=== PATIENT | female | born 1995 | race Asian ===

== ENCOUNTER 2021-02-16 18:59 | Inpatient (IN) ==
[2021-02-16 20:56] LABS: Basophils # (auto) 0.04 K/uL (0-0.2); Basophils % (auto) 0.5 %; Eosinophils # (auto) 0.06 K/uL (0-0.5); Eosinophils % (auto) 0.8 %; Hematocrit (blood only) 34.7 % (37-47); Hemoglobin 11.8 g/dL (12.0-16.0); Immature Granulocytes # (auto) 0.01 K/uL (0.00-0.02); Immature Granulocytes % (auto) 0.1 %; Lymphocytes # (auto) 2.38 K/uL (1.2-3.4); Lymphocytes % (auto) 29.9 %; Mean Corpuscular Hemoglobin 27.6 pg (25-34); Mean Corpuscular Volume 81.3 fL (80-100); Mean Platelet Volume 10.3 fL (7.4-10.4); Monocytes # (auto) 0.55 K/uL (0.11-0.59); Monocytes % (auto) 6.9 %; Neutrophils # (auto) 4.92 K/uL (1.4-6.5); Neutrophils % (auto) 61.8 %; Platelet Count 479 K/uL (130-400); RDW Coefficient of Variation 13.7 % (11.5-14.5); RDW Standard Deviation 41.1 fL (36.4-46.3); Red Blood Count 4.27 M/uL (4.2-5.4); White Blood Count 7.96 K/uL (4.8-10.8)
[2021-02-16] MEDS ORDERED: POTASSIUM CHLORIDE CRTAB 20 MEQ TABCR PO STA (21:16)
[2021-02-16] MEDS ORDERED: SODIUM CHLORIDE 0.9% 1000ML 500 ML IV ONE (21:16)
[2021-02-16] MEDS ORDERED: POTASSIUM CHLORIDE / WTR 10 MEQ/100 ML PLCT IV ONE ×2 (21:16→23:30)
[2021-02-16] MEDS ORDERED: ONDANSETRON INJ 2 MG/ML 2 ML VIAL IV STA (21:16)
--- NOTE | 2021-02-16 21:19 | Emergency Department Note ---
Impression & Plan Weakness, Hypokalemia, Vomiting, Acute electrocardiogram changes ED Provider Note NAME: MELISSA OHARA AGE: 26 SEX: F : 1995 ARRIVES VIA: Walk-In INFORMANT: [Patient] ED PROVIDER(S): [Ajith Ram MD] CHIEF COMPLAINT: Referred by HISTORY OF PRESENT ILLNESS: The patient is a 26-year-old female who presents to the ED at her doctor's advice for a potassium of 2.6. The patient has a eating disorder. She has been dealing with this for 13 years. She has no formal diagnosis though. She typically forces herself to vomit 1 or 2 times a day. Her last vomiting spell was yesterday. She feels weak and tired but this is baseline. She is thin but this is also baseline. There has been no cough or congestion. No shortness of breath, no abdominal pain. The patient states that she was told a few months ago that her potassium was low. This was when she was in [place]. She did not start any potassium supplementation. REVIEW OF SYSTEMS: See HPI for pertinent positives and negatives. A total of ten systems were reviewed and were otherwise negative. PMHx/PSHx: See Below SOCIAL HISTORY: See Below. PHYSICAL EXAM: GENERAL: Patient is in no acute distress. Quite thin. HEENT: No acute trauma, normocephalic atraumatic, mucous membranes moist, no nasal congestion, no scleral icterus. NECK: No stridor, no adenopathy, no meningismus, trachea is midline. LUNGS: Clear to auscultation bilaterally, no wheeze, no rhonchi, breath sounds equal. HEART: Without murmurs gallops or rubs, regular rate and rhythm. ABDOMEN: Soft, nontender, bowel sounds positive, no hernias, no peritonitis. EXTREMITIES: No cyanosis or edema, full range of motion of all the joints without pain or difficulty, no signs for acute trauma. NEUROLOGIC: Oriented x 3, no acute motor or sensory deficits, no focal weakness. SKIN: No rash, no jaundice, no diaphoresis. DIFFERENTIAL DIAGNOSIS: Dehydration, electrolyte imbalance, hypokalemia, dysrhythmia, malnutrition, dehydration, eating disorder, among others. EMERGENCY DEPARTMENT COURSE/PROCEDURES: ECG: Indication was low potassium. The ECG shows a normal sinus rhythm with a rate of 62. There are some potential U waves in the lateral leads. There are no PVCs, no ST elevation. The QTc is 452. No old ECGs available for comparison. Continuous Cardiac Monitoring: An order was placed for continuous cardiac monitoring. The monitor shows a rate of 70 with normal sinus rhythm. Critical Care Note: I have personally spent 42 minutes of critical care time in the direct management of this patient. This includes bedside care, interpretation of diagnostic studies, and testing, discussion with consultants, patient, and family members, and other required patient management activities. This 42 minutes is in excess of all separately billable procedures. MEDICAL DECISION MAKING: There is no leukocytosis or concerning anemia. The platelet count is slightly elevated. Renal panel testing shows a low sodium and low chloride. CO2 was elevated. Potassium was critically low at 1.9. No concerning liver enzyme elevation. The patient appeared to be in a euthyroid state. Covid testing is pending. ECG showed a sinus rhythm with some potential U waves consistent with the lower potassium value. On exam, the patient was not hypoxic or febrile. She was quite thin and frail appearing. The patient was aggressively managed given her critically low potassium. She received oral and IV potassium. A second dose of IV potassium was administered. She was kept on the nurse monitoring. She was given IV saline for hydration. She received IV Zofran to prevent further nausea/vomiting. The patient has a known eating disorder. She presents with ongoing weakness. Her potassium is critically low and she has some EKG changes. She is going to require a hospital stay to correct her significant potassium deficit. I did speak with the patient and case supervisor. The on-call hospitalist was consulted. Past Med/Surg History Medical History Eating disorder Social History Smoking Status: Never smoker Feels Safe at Home: Yes Allergies Allergies Allergy/AdvReac Type Severity Reaction Status Date / Time No Known Allergies Allergy Unverified 02/16/21 21:04 Home Meds Home Medications Medication Instructions Recorded Confirmed Control 1 tab PO DAILY 02/16/21 02/16/21 Results & Data (ED) Vital Signs Vital Signs - 24 hr 02/16/21 19:09 02/16/21 23:00 02/16/21 23:30 Temperature 36.8 C Temperature Source Temporal Artery Scan Pulse Rate 70 68 71 Respiratory Rate 16 15 20 Respiratory Effort / Characteristics Non-Labored Spontaneous Respiratory Depth Normal Blood Pressure 104/69 Blood Pressure Mean 80 Blood Pressure Position Sitting Pulse Oximetry 100 Oxygen Delivery Method Room Air Sepsis Recent Fever Within 48 Hours No Sepsis New/Unexplained Change in Mental Status N/A Sepsis Action Taken by Nursing No Action Required 02/16/21 23:57 Temperature Temperature Source Pulse Rate 70 Respiratory Rate 18 Respiratory Effort / Characteristics Respiratory Depth Blood Pressure 108/67 Blood Pressure Mean 80 Blood Pressure Position Pulse Oximetry 98 Oxygen Delivery Method Room Air Sepsis Recent Fever Within 48 Hours Sepsis New/Unexplained Change in Mental Status Sepsis Action Taken by Longterm Medications Current Medication List: was personally reviewed by me Laboratory Data Attestation: I reviewed the patient's lab results. Result diagrams: 02/16/21 20:36 02/16/21 22:33 Lab Results 02/16/21 02/16/21 02/16/21 Range/Units 20:36 20:36 20:36 WBC 7.96 (4.8-10.8) K/uL RBC 4.27 (4.2-5.4) M/uL Hgb 11.8 L (12.0-16.0) g/dL Hct 34.7 L (37-47) % MCV 81.3 (80-100) fL MCH 27.6 (25-34) pg MCHC 34.0 (32-36) g/dL RDW Std Deviation 41.1 (36.4-46.3) fL RDW Coeff of Gavino 13.7 (11.5-14.5) % Plt Count 479 H (130-400) K/uL MPV 10.3 (7.4-10.4) fL Immature Gran % (Auto) 0.1 % Neut % (Auto) 61.8 % Lymph % (Auto) 29.9 % [place] % (Auto) 6.9 % Eos % (Auto) 0.8 % Baso % (Auto) 0.5 % Neut # (Auto) 4.92 (1.4-6.5) K/uL Lymph # (Auto) 2.38 (1.2-3.4) K/uL [place] # (Auto) 0.55 (0.11-0.59) K/uL Eos # (Auto) 0.06 (0-0.5) K/uL Baso # (Auto) 0.04 (0-0.2) K/uL Immature Gran # (Auto) 0.01 (0.00-0.02) K/uL Sodium 131 L (136-145) mmol/L Potassium (3.5-5.1) mmol/L Chloride 87 L (98-107) mmol/L Carbon Dioxide 36 H (21-32) mmol/L Anion Gap 8.0 (3-11) BUN 11 (7-18) mg/dl Creatinine 0.73 (0.6-1.2) mg/dl Est Cr Clr Drug Dosing 69.4 ml/min Est GFR ( Amer) 129.9 ml/min Est GFR (Non-Af Amer) 112.1 ml/min BUN/Creatinine Ratio 15.0 (10-20) Glucose 80 (70-99) mg/dl Calcium 9.8 (8.5-10.1) mg/dl Phosphorus 2.9 (2.5-4.9) mg/dl Magnesium (1.8-2.4) mg/dl Total Bilirubin 0.4 (0.2-1) mg/dl AST (15-37) U/L ALT 18 (12-78) U/L Alkaline Phosphatase 31 L (45-117) U/L Total Protein 8.4 H (6.4-8.2) gm/dl Albumin 3.4 (3.4-5.0) gm/dl Globulin 5.0 H (2.5-4.0) gm/dl Albumin/Globulin Ratio 0.7 L (0.9-2) TSH 0.699 (0.300-4.500) uIu/ml COVID-19 Eval Order 02/16/21 02/16/21 Range/Units 22:33 23:50 WBC (4.8-10.8) K/uL RBC (4.2-5.4) M/uL Hgb (12.0-16.0) g/dL Hct (37-47) % MCV (80-100) fL MCH (25-34) pg MCHC (32-36) g/dL RDW Std Deviation (36.4-46.3) fL RDW Coeff of Gavino (11.5-14.5) % Plt Count (130-400) K/uL MPV (7.4-10.4) fL Immature Gran % (Auto) % Neut % (Auto) % Lymph % (Auto) % [place] % (Auto) % Eos % (Auto) % Baso % (Auto) % Neut # (Auto) (1.4-6.5) K/uL Lymph # (Auto) (1.2-3.4) K/uL [place] # (Auto) (0.11-0.59) K/uL Eos # (Auto) (0-0.5) K/uL Baso # (Auto) (0-0.2) K/uL Immature Gran # (Auto) (0.00-0.02) K/uL Sodium (136-145) mmol/L Potassium 1.9 L* (3.5-5.1) mmol/L Chloride (98-107) mmol/L Carbon Dioxide (21-32) mmol/L Anion Gap (3-11) BUN (7-18) mg/dl Creatinine (0.6-1.2) mg/dl Est Cr Clr Drug Dosing ml/min Est GFR ( Amer) ml/min Est GFR (Non-Af Amer) ml/min BUN/Creatinine Ratio (10-20) Glucose (70-99) mg/dl Calcium (8.5-10.1) mg/dl Phosphorus (2.5-4.9) mg/dl Magnesium 2.1 (1.8-2.4) mg/dl Total Bilirubin (0.2-1) mg/dl AST 25 (15-37) U/L ALT (12-78) U/L Alkaline Phosphatase (45-117) U/L Total Protein (6.4-8.2) gm/dl Albumin (3.4-5.0) gm/dl Globulin (2.5-4.0) gm/dl Albumin/Globulin Ratio (0.9-2) TSH (0.300-4.500) uIu/ml COVID-19 Eval Order Covid19 at [facility] Administered Medications Potassium Chloride (K Matt / Wtr) 10 meq in 100 mls @ 100 mls/hr IV ONE ONE Stop: 02/17/21 00:29 Last Admin: 02/16/21 23:49 Dose: 100 mls/hr Documented by: [id number] Discontinued Medications Sodium Chloride (Nss 1000ml) 500 mls @ 999 mls/hr IV .Q31M ONE Stop: 02/16/21 21:46 Last Infusion: 02/16/21 22:56 Dose: 0 mls/hr Documented by: [id number] Admin: 02/16/21 21:59 Dose: 999 mls/hr Documented by: [id number] Potassium Chloride (K Matt / Wtr) 10 meq in 100 mls @ 100 mls/hr IV ONE ONE Stop: 02/16/21 22:15 Last Infusion: 02/16/21 22:55 Dose: 0 mls/hr Documented by: [id number] Admin: 02/16/21 21:59 Dose: 100 mls/hr Documented by: [id number] Ondansetron HCl (Ondansetron Inj 2 Mg/Ml 2 Ml Vial) 4 mg IV NOW STA Stop: 02/16/21 21:17 Last Admin: 02/16/21 21:59 Dose: 4 mg Documented by: [id number] Potassium Chloride (Potassium Chloride Crtab 20 Meq Tabcr) 20 meq PO NOW STA Stop: 02/16/21 21:17 Last Admin: 02/16/21 21:59 Dose: 20 meq Documented by: [id number] Discharge Plan Visit Data Chief Complaint: Referred by Doctor Stated Complaint: DOCTOR REFERRAL ED Provider: Ajith Ram Discharge Problem: Weakness, Hypokalemia, Vomiting, Acute electrocardiogram changes Patient Disposition: Admitted As Inpatient Condition: Fair Forms Stand Alone Forms: [facility] Prescriptions Prescriptions: No Action Control 1 tab PO DAILY RF: 0 Referrals Referrals: PCP,NO [Primary Care Provider] -
[2021-02-16 21:31] LABS: Albumin Globulin Ratio 0.7 (0.9-2); Albumin Level 3.4 gm/dl (3.4-5.0); Bilirubin,Total 0.4 mg/dl (0.2-1); Calcium 9.8 mg/dl (8.5-10.1); Creatinine Clr Calc Pharmacy 69.4 ml/min; Est GFR (African American) 129.9 ml/min; Est GFR (Non-African American) 112.1 ml/min; Total Protein 8.4 gm/dl (6.4-8.2)
[2021-02-16 21:49] LABS: Phosphorus 2.9 mg/dl (2.5-4.9); Thyroid Stimulating Hormone 0.699 uIu/ml (0.300-4.500)
[2021-02-16 23:28] LABS: Magnesium 2.1 mg/dl (1.8-2.4); Potassium 1.9 mmol/L (3.5-5.1)
[2021-02-17] MEDS ORDERED: POTASSIUM CHLORIDE CRTAB 20 MEQ TABCR PO STA (00:42)
[2021-02-17] MEDS ORDERED: THIAMINE HCL 100 MG TAB PO STA (00:42)
--- NOTE | 2021-02-17 00:43 | History & Physical Report ---
Date of Service February 17, 2021 Assessment & Plan (1) Hypokalemia: Plan: 18-year-old female presenting from outside clinic after being found with potassium of 2.6. Potassium here = 1.9. Patient with history of eating disorder with self-induced vomiting 1-2 times per day as well as some calorie restriction. Suspect decreased intake of potassium in conjunction with GI losses from vomiting as primary cause of hypokalemia. Patient is HD stable. EKG with CT of 174, ?U wave in V3 -She received 40 mEq of K in the ER. Will administer additional 80mEq (total of 120mEq) and repeat chemistry -BMP q 8 hours -Magnesium 1gm IV x 1 -Check urine K and Cr for possible urinary K loss (2) Eating disorder: Plan: Patient with longstanding history of eating disorder. She states that she started 13 years ago after attempted to lose weight and has continued with some calorie restriction as well as purging behavior. She has never received a formal diagnosis for her eating disorder and has never sought psychiatric help. I briefly discussed with her the risks of purging behavior to include organ dysfunction, malnutrition. She is interested in speaking with psychiatry. Psychiatry consult appreciated We will administer thiamine 100 mg p.o. daily Closely monitor electrolytes, potassium, magnesium, phosphorus and replete as needed Plan: FENnormal saline at 80 mL/h x 1 L, potassium repletion as above, normal diet as tolerated ProphylaxisSCDs Codepatient states she wishes to be DNR/DNI. While this is her personal choice it is concerning given her young age. Did not delve into any personal or cultural reasons for this decision at this time. Dispoadmit to medical with telemetry History of Present Illness Chief Complaint: hypokalemia Primary Care Provider: NO PCP 26yo female presenting with hypokalemia. Patient was seen at the [facility] clinic today. She had labs sent which revealed a potassium of 2.6. She was subsequently sent to the ER for additional work-up and treatment. Patient has a longstanding history of eating disorder. She admits to calorie counting as well as purging 1-2 times daily. She has been dealing with this for approximately 13 years. Reports she has never been formally evaluated for an eating disorder. She was told several months ago while in [place] that her potassium was low. She is presently not taking any potassium supplements. She denies diarrhea or use of diuretics or laxatives to aid in weight loss. She is complaining of generalized weakness otherwise negative review of systems Has received both Covid vaccines. Second dose of Pfizer 02/06/2021 Allergies Allergy/AdvReac Type Severity Reaction Status Date / Time No Known Allergies Allergy Unverified 02/16/21 21:04 Home Medications Medication Instructions Recorded Confirmed Type Control 1 tab PO DAILY 02/16/21 02/16/21 History Past Med/Surg History Medical History (Updated 02/17/21 @ 03:23 by Patria Slater DO) Eating disorder Surgical History (Updated 02/17/21 @ 03:21 by Patria Slater DO) History of repair of congenital atrial septal defect (ASD) Family History (Updated 02/17/21 @ 03:21 by Patria Slater DO) Other Diabetes Heart disease Hypertension Social History (Updated 02/17/21 @ 03:21 by Patria Slater DO) Smoking Status: Never smoker Hx Alcohol Use: No Hx Substance Use: No Feels Safe at Home: Yes Review of Systems Review of Systems: All systems reviewed & are unremarkable except as noted in HPI & below Physical Exam Physical Exam: General: patient resting comfortably, NAD, non-toxic in appearance, anxious, thin, AA&O x 4 Skin: warm, dry, intact, no rashes or lesions HEENT: NC/AT, PERRL, EOMI, anicteric sclera, conjunctiva without injection, external ear normal to inspection and nontender, nares patent, moist mucus membranes, dentition intact, no oropharyngeal lesions, neck supple, trachea midline, no LAD, no thyromegaly, no JVD Heart: +S1/S2, regular, flow murmur, no rubs/gallops Lungs: equal air entry bilaterally, no rales/rhonchi/wheezes Abd: +BS, soft, NT/ND, no masses/organomegaly/ascites Ext: warm, 2+ pulses in UE/LE bilaterally, no clubbing/cyanosis or edema Neuro: nonfocal, patient AA&O x 4, speech intact, no facial droop, moving all extremities on command with equal strength 5/5 Results & Data Results & Data ([facility]) Vital Signs (Past 12 Hours) Vital Signs Temp Pulse Resp BP Pulse Ox 02/16/21 23:57 70 18 108/67 98 02/16/21 23:30 71 20 02/16/21 23:00 68 15 02/16/21 19:09 36.8 C 70 16 104/69 100 Laboratory Results Laboratory Results WBC 7.96 K/uL (4.8-10.8) 02/16/21 20:36 RBC 4.27 M/uL (4.2-5.4) 02/16/21 20:36 Hgb 11.8 g/dL (12.0-16.0) L 02/16/21 20:36 Hct 34.7 % (37-47) L 02/16/21 20:36 MCV 81.3 fL (80-100) 02/16/21 20:36 MCH 27.6 pg (25-34) 02/16/21 20:36 MCHC 34.0 g/dL (32-36) 02/16/21 20:36 RDW Std Deviation 41.1 fL (36.4-46.3) 02/16/21 20:36 RDW Coeff of Gavino 13.7 % (11.5-14.5) 02/16/21 20:36 Plt Count 479 K/uL (130-400) H 02/16/21 20:36 MPV 10.3 fL (7.4-10.4) 02/16/21 20:36 Immature Gran % (Auto) 0.1 % 02/16/21 20:36 Neut % (Auto) 61.8 % 02/16/21 20:36 Lymph % (Auto) 29.9 % 02/16/21 20:36 [place] % (Auto) 6.9 % 02/16/21 20:36 Eos % (Auto) 0.8 % 02/16/21 20:36 Baso % (Auto) 0.5 % 02/16/21 20:36 Neut # (Auto) 4.92 K/uL (1.4-6.5) 02/16/21 20:36 Lymph # (Auto) 2.38 K/uL (1.2-3.4) 02/16/21 20:36 [place] # (Auto) 0.55 K/uL (0.11-0.59) 02/16/21 20:36 Eos # (Auto) 0.06 K/uL (0-0.5) 02/16/21 20:36 Baso # (Auto) 0.04 K/uL (0-0.2) 02/16/21 20:36 Immature Gran # (Auto) 0.01 K/uL (0.00-0.02) 02/16/21 20:36 Sodium 131 mmol/L (136-145) L 02/16/21 20:36 Potassium 1.9 mmol/L (3.5-5.1) L* 02/16/21 22:33 Chloride 87 mmol/L (98-107) L 02/16/21 20:36 Carbon Dioxide 36 mmol/L (21-32) H 02/16/21 20:36 Anion Gap 8.0 (3-11) 02/16/21 20:36 BUN 11 mg/dl (7-18) 02/16/21 20:36 Creatinine 0.73 mg/dl (0.6-1.2) 02/16/21 20:36 Est Cr Clr Drug Dosing 69.4 ml/min 02/16/21 20:36 Est GFR ( Amer) 129.9 ml/min 02/16/21 20:36 Est GFR (Non-Af Amer) 112.1 ml/min 02/16/21 20:36 BUN/Creatinine Ratio 15.0 (10-20) 02/16/21 20:36 Glucose 80 mg/dl (70-99) 02/16/21 20:36 Calcium 9.8 mg/dl (8.5-10.1) 02/16/21 20:36 Phosphorus 2.9 mg/dl (2.5-4.9) 02/16/21 20:36 Magnesium 2.1 mg/dl (1.8-2.4) 02/16/21 22:33 Total Bilirubin 0.4 mg/dl (0.2-1) 02/16/21 20:36 AST 25 U/L (15-37) 02/16/21 22:33 ALT 18 U/L (12-78) 02/16/21 20:36 Alkaline Phosphatase 31 U/L (45-117) L 02/16/21 20:36 Total Protein 8.4 gm/dl (6.4-8.2) H 02/16/21 20:36 Albumin 3.4 gm/dl (3.4-5.0) 02/16/21 20:36 Globulin 5.0 gm/dl (2.5-4.0) H 02/16/21 20:36 Albumin/Globulin Ratio 0.7 (0.9-2) L 02/16/21 20:36 TSH 0.699 uIu/ml (0.300-4.500) 02/16/21 20:36 Urine Color Yellow 02/17/21 03:10 Urine Appearance Clear (Clear) 02/17/21 03:10 Urine pH 7.0 (4.5-7.5) 02/17/21 03:10 Ur Specific [place] 1.014 (1.000-1.030) 02/17/21 03:10 Urine Protein Negative (Negative) 02/17/21 03:10 Urine Glucose (UA) Negative (Negative) 02/17/21 03:10 Urine Ketones 1+ (Negative) H 02/17/21 03:10 Urine Blood Negative (Negative) 02/17/21 03:10 Urine Nitrite Negative (Negative) 02/17/21 03:10 Urine Bilirubin Negative (Negative) 02/17/21 03:10 Urine Urobilinogen Negative (Negative) 02/17/21 03:10 Ur Leukocyte Esterase Negative (Negative) 02/17/21 03:10 COVID-19 Eval Order Covid19 at [facility] 02/16/21 23:50 SARS-CoV-2 (PCR) NEGATIVE (Negative) 02/16/21 23:50 Code Status & VTE Plan VTE Prophylaxis Plan VTE Prophylaxis will be ordered: Yes PG Care Time/CCT Total # of Minutes Spent Total Time Spent with Patient: Total time spent is greater than 50% in coordination of care (as documented) at patient's floor/unit and/or counseling patient: Coding Level of Care Code 70822 Initial Inpt Care Lvl 2 Diagnoses Hypokalemia E87.6 Eating disorder F50.9
[2021-02-17 03:17] LABS: Appearance Urine Clear (Clear); Bilirubin Urine Negative (Negative); Blood Urine Negative (Negative); Color Urine Yellow; Glucose Urine UA Negative (Negative); Ketones Urine 1+ (Negative); Leukocyte Esterase Urine Negative (Negative); Nitrite Urine Negative (Negative); Protein Urine Negative (Negative); Specific Gravity Urine 1.014 (1.000-1.030); Urobilinogen Urine Negative (Negative)
[2021-02-17] MEDS ORDERED: SODIUM CHLORIDE 0.9% 1000ML 1,000 ML IV SCH (05:43)
[2021-02-17] MEDS ORDERED: ONDANSETRON INJ 2 MG/ML 2 ML VIAL IV PRN (05:43)
[2021-02-17] MEDS ORDERED: ACETAMINOPHEN 325 MG TAB PO PRN (05:43)
[2021-02-17] MEDS ORDERED: MAGNESIUM SULFATE / D5W 1 GM/100 ML BAG IV ONE (05:45)
[2021-02-17 07:06] LABS: BUN Creatinine Ratio 14.1 (10-20); Calcium 8.3 mg/dl (8.5-10.1); Creatinine Clr Calc Pharmacy 93.8 ml/min; Est GFR (African American) 148.8 ml/min; Est GFR (Non-African American) 128.4 ml/min; Potassium 2.7 mmol/L (3.5-5.1)
[2021-02-17] MEDS: THIAMINE HCL 100 MG TAB PO SCH (10:57)
--- NOTE | 2021-02-17 11:07 | Hospitalist Progress Note ---
Date of Service February 17, 2021 Assessment & Plan (1) Eating disorder: Plan: 26yo female with anorexia nervosa (binge eating and purging subtype) who presents with severe hypokalemia in the setting of disordered eating. Hypokalemia Potassium 1.9 on arrival, improved to 2.9 (02/17 midday) Likely secondary to emesis as well as malnutrition EKG without acute abnormality Magnesium wnl Continue NSS @ 80mL/hr with 40mEq per bag Continue KCl @ 20mEq PO bid Trend BMP q8hr, trend magnesium daily Anorexia nervosa, binge-purge subtype Patient with 10+ year history of eating disorder History of at least two inpatient psychiatric hospitalizations (in [place]) at age 14-15 BMI 17.0, albumin 3.4 Other than hypokalemia, other electrolytes wnl - patient does not appear to be at risk for refeeding syndrome Patient reports some temptation to purge while here - if this worsens, consider hydroxyzine prior to meals Psychiatry consult placed Nutrition consult placed Continue protonix, daily multivitamin with minerals, thiamine Behavioral/emotional health Patient endorses long history of suicidal ideation, multiple suicide attempts, ritualistic behaviors Concern for comorbid psychiatric conditions e.g. MDD, OCD Psychiatry consulted as above Patient denies active or passive suicidal ideation FEN: NSS with 40mEq KCl @ 80mL/hr, regular diet Code status: DNR/DNI DVT ppx: SCDs Held home meds: none Consults: psychiatry, nutrition PT/OT: not indicated Dispo: med/surg tele (2) Hypokalemia: Admission and Anticipated Discharge Date Admission Date: February 17, 2021 Supervising Physician Co-Signing Physician Notes Resident Physician Supervision Note: I independently interviewed and examined the patient and verified the yeager history and physical, reviewed labs and image studies and agree with resident Dr. Austin findings and care plan. Subjective Patient seen and evaluated at bedside this morning. Patient feels well today - endorses mild anxiety as only current symptom. 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 Patient denies CP, SOB, abdominal pain, nausea, vomiting, lightheadedness, dizziness, and diarrhea. Denies recent change in appetite, energy level, focus, or need for sleep. Endorses some hopelessness and regret. Denies excessive involvement in pleasurable activities, denies increased risk- taking. Denies AVH, denies SI/HI. Of note, patient reported to me that she actually has received medical/psychiatric treatment for disordered eating. Patient reports she has had two inpatient psychiatric hospitalizations, both of which occurred at age 14-15. One stay was five months, the other was two months. Patient received outpatient eating disorder treatment for 3-4 years afterward before stopping treatment. Patient has not seen a psychiatrist in 2-3 years. Patient endorses a history of cutting on her upper left arm, in addition to "a few" suicide attempts during her teenage years. One such attempt entailed an intentional ingestion of "one of every different kind of pill I could find". Patient reports that she did not seek or require medical treatment after any of her suicide attempts. Review of Systems Review of Systems: See HPI Physical Exam Physical Exam: Constitutional: thin, tired-appearing, no acute distress HEENT: NCAT, no conjunctival injection, no swelling of cheeks noted, poor dentition CV: regular rhythm, no murmur appreciated, extremities well-perfused, no LE edema Resp: CTABL, no wheezes/rales/rhonchi appreciated, no increased work of breathing Skin: well-healed vertical scars on upper left arm Neuro: AOx4, no focal neurological deficits appreciated Appearance: well-groomed, appropriately dressed Behavior: calm, cooperative, eye contact good Mood: "okay" Affect: pleasant, affect congruent with mood Speech: appropriate rate/quantity/volume Thought process: linear, coherent Thought content: appropriate to topic of discussion Cognition: alert, focused, short- and long-term memory grossly intact, abstraction intact Insight: fair Judgment: fair Results & Data Results & Data ([facility]) Vital Signs (Past 12 Hours) Vital Signs Pulse Pulse Resp BP BP Pulse Ox 02/17/21 10:00 66 18 121/62 100 02/17/21 07:36 65 93/64 L 100 02/17/21 06:07 58 L 12 84/53 L 98 02/17/21 05:57 81 25 H 02/17/21 05:00 66 13 98 02/17/21 04:45 57 L 22 98 02/17/21 04:30 61 12 97 02/17/21 04:15 61 14 97 02/17/21 04:00 63 12 97 02/17/21 03:45 63 12 98 02/17/21 03:30 58 L 13 97 02/17/21 03:15 56 L 21 99 02/17/21 02:30 57 L 13 109/62 99 02/17/21 02:00 63 15 101/59 L 98 02/17/21 01:30 81 16 108/65 100 02/17/21 01:00 70 14 98/61 L 98 02/17/21 00:30 85 19 105/67 100 02/17/21 00:00 77 15 106/69 100 02/16/21 23:57 70 18 108/67 98 02/16/21 23:30 71 20 02/16/21 23:00 68 15 Resident Activity Tracking Resident Involvement: Resident Care Provided Care Provided: Adult Hospital Medicine
[2021-02-17] MEDS: ORAL CONTRACEPTIVE~ORDER AWAITING ACTION SCH ×3 (11:55→23:41)
[2021-02-17 13:03] LABS: BUN Creatinine Ratio 10.5 (10-20); Blood Urea Nitrogen 5 mg/dl (7-18); Calcium 9.3 mg/dl (8.5-10.1); Carbon Dioxide 29 mmol/L (21-32); Chloride 98 mmol/L (98-107); Creatinine Clr Calc Pharmacy 99.3 ml/min; Est GFR (African American) > 150.0 ml/min; Est GFR (Non-African American) 130.9 ml/min; Glucose 91 mg/dl (70-99); Potassium 2.9 mmol/L (3.5-5.1); Sodium 134 mmol/L (136-145)
--- NOTE | 2021-02-17 13:56 | Medical Student Progress Note ---
Date of Service February 17, 2021 Assessment & Plan (1) Hypokalemia: Plan: -Patient is not currently experiencing any symptoms -Last Potassium level was 2.9 -IV saline and potassium should be continued. -Potassium levels should be drawn every 12h until the level is back within the normal range -Patient should start a potassium supplement upon discharge (2) Eating disorder: Plan: -Patient BMI is 17, a nutrition consult has been placed to work on proper nourishment for the patient -Patient continues to binge and purge putting her at risk for electrolyte imbalances -Psychiatry has been consulted to assess any psychiatric factors that may influence her management -Patient should start on a multivitamin -Upon discharge the patient should follow up with the [facility] team. (3) History of suicide attempt: Plan: -Patient has not informed us of any thoughts of suicidal ideation at this point in time -A psychiatric consult has been placed to assess the patient's current psychiatric state and suicide risk Admission and Anticipated Discharge Date Admission Date: February 17, 2021 Subjective 26 y/o female presented last night to the ED due to hypokalemia. Patient was establishing care with the [facility] program for an eating disorder. They bishnu labs to establish a baseline, noted hypokalemia, and advised the patient to present to the ED. Upon arrival to the ED, patient was alert and oriented and stated she had no symptoms. Labs were drawn and were significant for hypokalemia which had a value 1.9. The patient had an EKG which showed no significant findings. Today the patient feels well and has no complaints. The patient has a history of an undiagnosed eating disorder. She states that she has been binging and purging since around the age of 11. She said that these eating habits began after family members and friends started making comments about weight gain that she had at that age. The patient has had two prior hospitalizations due to complications from her eating disorder. The patient states that she often times will purge after lunch and will always purge after dinner. She will not eat certain foods due to a reason that she has a difficult time describing, but not due to their nutritional or caloric value. The patient states that the reason she avoids certain foods is also applied to other aspects of her life. She listed the example of writing the same letter repeatedly for up to a half hour due to it needing to look a certain way. The patient does not note any history of prior physical, emotional, or sexual abuse. She does have a history of past suicidal attempts. The patient feels safe at home. The patient is from [place], and recently moved to [place] to attend graduate school at [employer]. She has no friends or family in the area. She lives in an apartment that she shares with three other girls. The patient states that she does not use the kitchen due to it being dirty and will only eat things that can be stored and prepared in her room. The patient was interested in seeing a member from the psychiatric team. Additionally, she want to continue to establish care and work with the HEALS team at [facility]. Review of Systems Review of Systems: All systems reviewed & are unremarkable except as noted in Subjective Physical Exam Constitutional: Thin, fatigued looking female, alert and oriented, sitting comfortably upright in bed Eyes: Parotids normal in size on palpation Single lower front tooth missing. No signs of dental carries Respiratory: normal respiratory effort, lungs clear to auscultation Cardiovascular: Rate/Rhythm: regular rate and regular rhythm Heart Sounds: normal S1 and normal S2 Musculoskeletal: B/L upper extremity strength 5/5, B/L lower extremity strength 4/5 Results & Data ([facility]) Vital Signs (Past 12 Hours) Vital Signs Pulse Pulse Resp BP BP Pulse Ox 02/17/21 13:34 64 18 102/65 98 02/17/21 10:00 66 18 121/62 100 02/17/21 07:36 65 93/64 L 100 02/17/21 06:07 58 L 12 84/53 L 98 02/17/21 05:57 81 25 H 02/17/21 05:00 66 13 98 02/17/21 04:45 57 L 22 98 02/17/21 04:30 61 12 97 02/17/21 04:15 61 14 97 02/17/21 04:00 63 12 97 02/17/21 03:45 63 12 98 02/17/21 03:30 58 L 13 97 02/17/21 03:15 56 L 21 99 02/17/21 02:30 57 L 13 109/62 99 02/17/21 02:00 63 15 101/59 L 98
[2021-02-17 14:22] LABS: BUN Creatinine Ratio 7.6 (10-20); Calcium 8.6 mg/dl (8.5-10.1); Potassium 2.7 mmol/L (3.5-5.1)
[2021-02-17] MEDS: POTASSIUM CHLORIDE 40 MEQ in SODIUM CHLORIDE 0.9% 1000ML 1,000 ML IV SCH (15:32)
[2021-02-17 16:44] LABS: Calcium 8.8 mg/dl (8.5-10.1); Creatinine Clr Calc Pharmacy 72.4 ml/min; Est GFR (African American) 121.8 ml/min; Est GFR (Non-African American) 105.1 ml/min; Potassium 2.8 mmol/L (3.5-5.1)
[2021-02-17] MEDS: PANTOprazole 40 MG TAB PO SCH (18:05)
[2021-02-17] MEDS: POTASSIUM CHLORIDE CRTAB 20 MEQ TABCR PO SCH (19:37)
[2021-02-17 21:10] LABS: BUN Creatinine Ratio 13.7 (10-20); Calcium 8.9 mg/dl (8.5-10.1); Creatinine Clr Calc Pharmacy 71.5 ml/min; Est GFR (African American) 119.9 ml/min; Est GFR (Non-African American) 103.5 ml/min; Potassium 3.4 mmol/L (3.5-5.1)
[2021-02-18] MEDS: POTASSIUM CHLORIDE 40 MEQ in SODIUM CHLORIDE 0.9% 1000ML 1,000 ML IV SCH (02:13)
[2021-02-18 05:14] LABS: BUN Creatinine Ratio 15.1 (10-20); Blood Urea Nitrogen 7 mg/dl (7-18); Calcium 8.4 mg/dl (8.5-10.1); Carbon Dioxide 28 mmol/L (21-32); Chloride 109 mmol/L (98-107); Creatinine Clr Calc Pharmacy 113.8 ml/min; Est GFR (African American) > 150.0 ml/min; Est GFR (Non-African American) 132.6 ml/min; Glucose 77 mg/dl (70-99); Magnesium 1.7 mg/dl (1.8-2.4); Potassium 3.4 mmol/L (3.5-5.1); Sodium 140 mmol/L (136-145)
[2021-02-18 05:15] LABS: Phosphorus 2.5 mg/dl (2.5-4.9)
[2021-02-18] MEDS ORDERED: POTASSIUM CHLORIDE CRTAB 20 MEQ TABCR PO STA (06:17)
[2021-02-18] MEDS ORDERED: MAGNESIUM SULFATE / D5W 1 GM/100 ML BAG IV ONE (07:00)
[2021-02-18 07:13] LABS: BUN Creatinine Ratio 14.3 (10-20); Blood Urea Nitrogen 7 mg/dl (7-18); Calcium 8.4 mg/dl (8.5-10.1); Carbon Dioxide 23 mmol/L (21-32); Chloride 110 mmol/L (98-107); Creatinine Clr Calc Pharmacy 115.5 ml/min; Est GFR (African American) > 150.0 ml/min; Est GFR (Non-African American) 132.6 ml/min; Glucose 81 mg/dl (70-99); Potassium 3.7 mmol/L (3.5-5.1); Sodium 139 mmol/L (136-145)
[2021-02-18] MEDS: ORAL CONTRACEPTIVE~ORDER AWAITING ACTION SCH (08:13)
[2021-02-18] MEDS: PANTOprazole 40 MG TAB PO SCH (08:14)
[2021-02-18] MEDS: POTASSIUM CHLORIDE CRTAB 20 MEQ TABCR PO SCH (08:14)
[2021-02-18] MEDS: THIAMINE HCL 100 MG TAB PO SCH (08:14)
[2021-02-18] MEDS ORDERED: MAGNESIUM OXIDE 400 MG TAB PO SCH (09:00)
[2021-02-18] MEDS ORDERED: CEROVITE ADV FORMULA TAB PO SCH (09:00)
--- NOTE | 2021-02-18 09:48 | Medical Student Progress Note ---
Date of Service February 18, 2021 Assessment & Plan (1) Hypokalemia: Plan: -Patient is not currently experiencing any symptoms -Last Potassium level was in normal range 3.7 on 02/18. This is an increase from 2.7 on 02/18. -Psychiatry consult thinks patient is okay to discharge -Patient to begin Klor-con bid, to be taken in mornings and before bed -Patient is to follow up with [facility] 02/20 (2) Eating disorder: Plan: -Patient BMI is 17 -Patient had nutrition consult -Patient had psychiatry consult -Pt to start fluoxetine 10mg po qd -Patient is to follow up with [facility] 02/20 Admission and Anticipated Discharge Date Admission Date: February 17, 2021 Subjective 26 y/o female presented last night to the ED due to hypokalemia. Today the patient states she feels like she is swollen. When asked to elaborate she states that her face, arms, and knees are swollen. She is in no pain. She reports that she has been eating well since being admitted and has not had the urge to purge since she arrived to the ED. Patient has seen the printer machine She says that she feels okay following their suggested changes to her diet, but is upset that they told her that she needed to gain weight. The patient said, "They want me to gain weight but there is no possible chance that I will. I will not gain weight." The patient states that she has seen the psychiatry liaison but not the psychiatrist. She found the session to be helpful. Review of Systems Review of Systems: All systems reviewed & are unremarkable except as noted in Subjective Physical Exam Constitutional: Thin, fatigued looking female, alert and oriented, sitting comfortably upright in bed ENMT: No signs of facial swelling, parotids slightly enlarged on palpation Respiratory: normal respiratory effort, lungs clear to auscultation Cardiovascular: Regular rate and rhythm, normal S1 and S2 sounds, no murmurs, rubs, or gallops Musculoskeletal: No signs of edema in either the upper or lower extremities upon physical exam Results & Data ([facility]) Vital Signs (Past 12 Hours) Vital Signs Temp Pulse Resp BP Pulse Ox 02/18/21 07:22 36.6 C 59 L 18 96/54 L 99 02/18/21 04:24 36.9 C 62 18 100/65 99 02/17/21 23:50 36.8 C 71 20 94/61 L 96 Laboratory Results Laboratory Results - last 24 hr 02/17/21 02/17/21 02/17/21 12:31 13:49 16:15 Sodium 134 L 136 135 L Potassium 2.9 L 2.7 L 2.8 L Chloride 98 100 100 Carbon Dioxide 29 30 27 Anion Gap 7.0 6.0 8.0 BUN 5 L 5 L 8 Creatinine 0.51 L 0.68 0.77 Est Cr Clr Drug Dosing 99.3 82.0 72.4 Est GFR ( Amer) > 150.0 138.0 121.8 Est GFR (Non-Af Amer) 130.9 119.0 105.1 BUN/Creatinine Ratio 10.5 7.6 L 10.0 Glucose 91 102 H 90 Calcium 9.3 8.6 8.8 Phosphorus Magnesium Ur Random Creatinine Ur Random Potassium 02/17/21 02/17/21 02/18/21 18:06 20:24 04:13 Sodium 135 L 140 Potassium 3.4 L D 3.4 L Chloride 101 109 H Carbon Dioxide 28 28 Anion Gap 6.0 3.0 BUN 11 7 Creatinine 0.78 0.49 L Est Cr Clr Drug Dosing 71.5 113.8 Est GFR ( Amer) 119.9 > 150.0 Est GFR (Non-Af Amer) 103.5 132.6 BUN/Creatinine Ratio 13.7 15.1 Glucose 130 H 77 Calcium 8.9 8.4 L Phosphorus 2.5 Magnesium 1.7 L Ur Random Creatinine 173.0 Ur Random Potassium 36.0 02/18/21 06:22 Sodium 139 Potassium 3.7 Chloride 110 H Carbon Dioxide 23 Anion Gap 6.0 BUN 7 Creatinine 0.49 L Est Cr Clr Drug Dosing 115.5 Est GFR ( Amer) > 150.0 Est GFR (Non-Af Amer) 132.6 BUN/Creatinine Ratio 14.3 Glucose 81 Calcium 8.4 L Phosphorus Magnesium Ur Random Creatinine Ur Random Potassium
--- NOTE | 2021-02-18 09:58 | Hospitalist Progress Note ---
Date of Service February 18, 2021 Assessment & Plan (1) Eating disorder: Plan: 26yo female with anorexia nervosa (binge eating and purging subtype) who presents with severe hypokalemia in the setting of disordered eating. Hypokalemia Potassium 1.9 on arrival, improved to 2.9 (02/17 midday) Likely secondary to emesis as well as malnutrition EKG without acute abnormality Magnesium wnl Continue NSS @ 80mL/hr with 40mEq per bag Continue KCl @ 20mEq PO bid Trend BMP q8hr, trend magnesium daily Anorexia nervosa, binge-purge subtype Patient with 10+ year history of eating disorder History of at least two inpatient psychiatric hospitalizations (in [place]) at age 14-15 BMI 17.0, albumin 3.4 Other than hypokalemia, other electrolytes wnl - patient does not appear to be at risk for refeeding syndrome Patient reports some temptation to purge while here - if this worsens, consider hydroxyzine prior to meals Psychiatry consult placed Nutrition consult placed Continue protonix, daily multivitamin with minerals, thiamine Behavioral/emotional health Patient endorses long history of suicidal ideation, multiple suicide attempts, ritualistic behaviors Concern for comorbid psychiatric conditions e.g. MDD, OCD Psychiatry consulted as above Patient denies active or passive suicidal ideation FEN: NSS with 40mEq KCl @ 80mL/hr, regular diet Code status: DNR/DNI DVT ppx: SCDs Held home meds: none Consults: psychiatry, nutrition PT/OT: not indicated Dispo: med/surg tele (2) Hypokalemia: Admission and Anticipated Discharge Date Admission Date: February 17, 2021 Review of Systems Review of Systems: See HPI Results & Data Results & Data ([facility]) Vital Signs (Past 12 Hours) Vital Signs Temp Pulse Resp BP Pulse Ox 02/18/21 07:22 36.6 C 59 L 18 96/54 L 99 02/18/21 04:24 36.9 C 62 18 100/65 99 02/17/21 23:50 36.8 C 71 20 94/61 L 96
[2021-02-18] MEDS ORDERED: ACETAMINOPHEN 500 MG TAB PO ONE (12:52)
--- NOTE | 2021-02-18 15:37 | Discharge Summary ---
Date of Service February 18, 2021 Admission HPI Per Admitting Provider 26yo female presenting with hypokalemia. Patient was seen at the [facility] [[email or web address] clinic today. She had labs sent which revealed a potassium of 2.6. She was subsequently sent to the ER for additional work-up and treatment. Patient has a longstanding history of eating disorder. She admits to calorie counting as well as purging 1-2 times daily. She has been dealing with this for approximately 13 years. Reports she has never been formally evaluated for an eating disorder. She was told several months ago while in [place] that her potassium was low. She is presently not taking any potassium supplements. She denies diarrhea or use of diuretics or laxatives to aid in weight loss. She is complaining of generalized weakness otherwise negative review of systems Has received both [employer] vaccines. Second dose of Pfizer 02/06/2021 Admission Exam Per Admitting Provider General: patient resting comfortably, NAD, non-toxic in appearance, anxious, thin, AA&O x 4 Skin: warm, dry, intact, no rashes or lesions HEENT: NC/AT, PERRL, EOMI, anicteric sclera, conjunctiva without injection, external ear normal to inspection and nontender, nares patent, moist mucus membranes, dentition intact, no oropharyngeal lesions, neck supple, trachea midline, no LAD, no thyromegaly, no JVD Heart: +S1/S2, regular, flow murmur, no rubs/gallops Lungs: equal air entry bilaterally, no rales/rhonchi/wheezes Abd: +BS, soft, NT/ND, no masses/organomegaly/ascites Ext: warm, 2+ pulses in UE/LE bilaterally, no clubbing/cyanosis or edema Neuro: nonfocal, patient AA&O x 4, speech intact, no facial droop, moving all extremities on command with equal strength 5/5 Principal Diagnosis Hypokalemia, anorexia nervosa Discharge Exam Constitutional: thin, tired-appearing, no acute distress HEENT: NCAT, no conjunctival injection, no swelling of cheeks noted, poor dentition CV: regular rhythm, no murmur appreciated, extremities well-perfused, no LE edema Resp: CTABL, no wheezes/rales/rhonchi appreciated, no increased work of breathing Skin: well-healed vertical scars on upper left arm Neuro: AOx4, no focal neurological deficits appreciated Appearance: well-groomed, appropriately dressed Behavior: calm, cooperative, eye contact good Mood: "okay" Affect: pleasant, affect congruent with mood Speech: appropriate rate/quantity/volume Thought process: linear, coherent Thought content: appropriate to topic of discussion Cognition: alert, focused, short- and long-term memory grossly intact, abstraction intact Insight: fair Judgment: fair Discharge Data Allergies Allergy/AdvReac Type Severity Reaction Status Date / Time No Known Allergies Allergy Unverified 02/16/21 21:04 Consultations 02/16/21 23:48 ED Decision to Admit Stat 02/17/21 05:43 Consult Psychiatry Routine Hospital Course (1) Eating disorder: Hypokalemia On admission, patient was asymptomatic, and EKG showed normal sinus rhythm without concerning features. Patient's hypokalemia was suspected to be secondary to emesis from patient's frequent purging, in addition to malnutrition. Patient was repleted with oral as well as IV potassium, and a regular diet was restarted. Patient's hypokalemia improved gradually, and resolved on hospital day two. Patient was discharged on hospital day two in stable condition with three days of oral potassium supplementation. PCP follow-up at the [facility] eating disorder clinic was arranged for the day after discharge. Anorexia nervosa, binge-purge subtype Anorexia with bulimia Severe Malnutrition Patient was monitored closely in an inpatient setting while we advanced nutrition due to the high risk of refeeding syndrome. Nutrition was gradually advanced while electrolytes were closely monitored. Other than hypokalemia as noted above, and one-time magnesium supplementation, patient not require additional electrolyte repletion. Patient had intermittent mild bradycardia while admitted. Thiamine and MVI were given while admitted. Weight improved appropriately as nutrition was advanced. Psychiatry was consulted and felt patient was a good candidate for outpatient eating disorder treatment through [facility]. Psychiatry also recommended fluoxetine to treat rigid thought processes to aid in eating disorder treatment. Patient was discharged on hospital day two in stable condition with an outpatient eating disorder therapy appointment arranged for the following day. (2) Hypokalemia: Total Time Total Time Spent Total Time Spent (In Minutes): see attending documentation Discharge Plan Discharge Items Patient Disposition: Home - Self-Care Reason For Visit: HYPOKALEMIA Discharge Diagnosis: Hypokalemia, anorexia nervosa Condition on Discharge: Fair Activity: Resume your previous activity Non-emergency contact: Primary Care Provider Call non-emergency contact if: you have any medication questions and your symptoms worsen Follow-up/Referrals: PCP,NO [Primary Care Provider] - Diet: Regular Addtl Attending Provider Instructions: You were admitted to the hospital for hypokalemia. You were treated with nutrition, IV fluids, and supplemental potassium. With adequate nutritional intake, your potassium will stay at a level that does not pose a risk to your health, and so we feel it is safe for you to be discharged home with close follow-up. A discharge summary will be sent to your primary care physician to ensure continuity of care. Please bring this discharge summary with you to your next office appointment so that your provider can review it at that time. Follow-up appointments: We have scheduled a follow-up appointment with Dr. Person ([facility]) for tomorrow, February 19 at 1:00pm. If you cannot make an appointment, notify your provider. Medications: Your medication list has been reviewed and reconciled upon discharge to ensure accuracy and continuity of care. An updated list of all your medications is included with your hospital discharge paperwork. Please review this list closely, and make note of any changes. * We sent a new medication called fluoxetine (Prozac) to your pharmacy. Take fluoxetine (10mg) one tablet daily. * We sent a new medication called potassium chloride to your pharmacy. Take potassium chloride (20mEq) one tablet twice daily (one with breakfast, one at bedtime) for three days. Take your medications as instructed; do not skip a dose of your medicines. Make sure all of your doctors know every medicine you are taking (including reub-ksl-zutqyfg medicines, vitamins, and supplements). Call your primary care provider before taking any new medicines (including ktgm-jyv-qauzjzg medicines, vitamins, and supplements), because some of these may interact with your current medications, or may make your symptoms worse. Tell your primary care provider if you cannot afford your medications. CONTACT YOUR PRIMARY CARE PROVIDER if you experience any of the following: Weakness, dizziness, fainting Worsening anxiety Difficulty following your treatment plan, or difficulty taking medications CALL 911 OR GO TO THE EMERGENCY DEPARTMENT if you experience any of the following: Sudden, severe abdominal pain or nausea/vomiting Severe chest pain, or chest pain that radiates (moves) to your jaw or arm Sudden, severe shortness of breath or difficulty breathing Thank you for allowing us to participate in your care. Pending Studies at Discharge: No Stand-Alone Forms: [facility], Work/School Release Medications and DC Order Prescriptions: New potassium chloride [Klor-Con M20] 20 mEq Tablet,Er Particles/Crystals 20 meq PO BID 3 Days Qty: 6 RF: 0 fluoxetine 10 mg capsule 10 mg PO QAM 30 Days Qty: 30 RF: 1 Continued Control 1 tab PO DAILY RF: 0 Discharge Orders: Discharge Order (Routine); Ordered 02/18/21 Ordered By: Dominick Austin Admission Data Admit Date/Time: 02/17/21 00:42 Attending Provider: Elis Fleming Admit Provider: Patria Slater Primary Care Provider: PCP,NO Other Providers: Patria Slater ; Jane Farmer ; Dr Christopher ; Nguyen Gambino ; Alton Sanders Other Interventions: Discharge Summary Assessment (RN) Last Done: 02/18/21 15:37 Supervising Physician Co-Signing Physician Notes Resident Physician Supervision Note: I independently interviewed and examined the patient and verified the yeager history and physical, reviewed labs and image studies and agree with resident Dr. Austin findings and care plan. Resident Activity Tracking Resident Involvement: Resident Care Provided Care Provided: Adult Hospital Medicine
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
--- NOTE | 2021-02-19 16:02 | Electrocardiogram Report ---
Test Reason : Blood Pressure : / mmHG Vent. Rate : 062 BPM Atrial Rate : 062 BPM P-R Int : 174 ms QRS Dur : 090 ms QT Int : 446 ms P-R-T Axes : 078 041 045 degrees QTc Int : 452 ms Poor data quality, interpretation may be adversely affected Normal sinus rhythm RSR' or QR pattern in V1 suggests right ventricular conduction delay Nonspecific ST abnormality Abnormal ECG No previous ECGs available Confirmed by Garrison Hooks ([id number]) on 02/19/2021 4:01:54 PM Referred By: REFERRED SELF Confirmed By:Garrison Hooks
--- NOTE | 2021-02-19 17:05 | Electrocardiogram Report ---
Test Reason : Blood Pressure : / mmHG Vent. Rate : 064 BPM Atrial Rate : 064 BPM P-R Int : 174 ms QRS Dur : 090 ms QT Int : 424 ms P-R-T Axes : 054 042 023 degrees QTc Int : 437 ms Normal sinus rhythm Normal ECG When compared with ECG of 16-FEB-2021 20:53, (unconfirmed) RSR' pattern in V1 is no longer Present Confirmed by Garrison Hooks ([id number]) on 02/19/2021 5:04:54 PM Referred By: REFERRED SELF Confirmed By:Garrison Hooks
== END 2021-02-18 16:28 | disposition home or self-care (01) | DRG 883 ==
LOC: ED 18:59 → EDINP 02-17 00:42 → SUATTDRO 02-17 00:42 → EDINP 02-17 02:51 → 2N 02-17 15:10
DX: Z20.822 Contact with and (suspected) exposure to COVID-19; Z81.8 Family history of other mental and behavioral disorders; Z66 Do not resuscitate; Z91.5 Personal history of self-harm; R53.1 Weakness; Z68.1 Body mass index [BMI] 19.9 or less, adult; E87.6 Hypokalemia; Z79.3 Long term (current) use of hormonal contraceptives; F50.02 Anorexia nervosa, binge eating/purging type; R00.1 Bradycardia, unspecified; Z87.74 Personal history of (corrected) congenital malformations of heart and circulatory system; E43 Unspecified severe protein-calorie malnutrition